=== PATIENT | female | born 1955 | race Caucasian/White ===

== ENCOUNTER 2021-11-24 18:53 | Outpatient (REF) | payer MEDICARE, MEDICAID, SELFPAY | END 2021-11-24 18:54 | disposition home or self-care (01) | LOC: HO.MRI 18:53 | PROVIDERS: Visit Provider Psychiatry & Neurology Neurology | DX: Z13.89 Encounter for screening for other disorder (principal) ==

== ENCOUNTER → 2022-01-01 14:09 | Outpatient (BNVA) | payer MEDICARE, MEDICAID, SELFPAY | PROVIDERS: Visit Provider Internal Medicine | DX: M54.16 Radiculopathy, lumbar region (principal) | CPT/HCPCS: 99202 ==

== ENCOUNTER 2022-01-03 06:18 | Outpatient (REF) | payer MEDICARE, MEDICAID, SELFPAY ==
--- NOTE | ~2022-01-03 | FL_ITS ---
EXAMINATION: XR FLUOROSCOPY WITH IMAGES CLINICAL INFORMATION: M54.16 - Radiculopathy, lumbar region COMPARISON: MR lumbar spine 11/29/2021 ([facility]). TECHNIQUE: Fluoroscopy performed by Dr. Jono Vargas. Fluoroscopy time: 23 seconds Cumulative dose: 16.39 mGy Images: 2 FINDINGS: There is a spinal needle entering the lower sacral hiatus on both views. FL/FL guidance in treatment room IMPRESSION: Fluoroscopy for pain management procedure.
== END 2022-01-03 06:19 | disposition home or self-care (01) ==
LOC: HO.RADIR 06:18
PROVIDERS: Visit Provider Internal Medicine
DX: M54.16 Radiculopathy, lumbar region (principal)
CPT/HCPCS: 62323; J1040; Q9967

== ENCOUNTER → 2022-02-05 14:08 | Outpatient (BNVA) | payer MEDICARE, MEDICAID, SELFPAY | PROVIDERS: Visit Provider Internal Medicine | DX: M54.16 Radiculopathy, lumbar region (principal) | CPT/HCPCS: 99212 ==

== ENCOUNTER 2022-03-28 05:56 | Outpatient (REF) | payer MEDICARE, MEDICAID, SELFPAY ==
--- NOTE | ~2022-03-28 | FL_ITS ---
EXAMINATION: XR FLUOROSCOPY WITH IMAGES CLINICAL INFORMATION: Fluoroscopic guidance. COMPARISON: None. TECHNIQUE: Fluoroscopy time: 0.5 minutes. Cumulative Dose: 14.6 mGy. DAP: 2.07 Gy-cm2. Images: 2. FL/FL guidance in treatment room FINDINGS: / IMPRESSION: Procedure fluoroscopy provided. Please refer to operative note for procedure and image findings
== END 2022-03-28 05:57 | disposition home or self-care (01) ==
LOC: HO.RADIR 05:56
PROVIDERS: Visit Provider Internal Medicine
DX: M54.16 Radiculopathy, lumbar region (principal)
CPT/HCPCS: 62323; J1040

== ENCOUNTER → 2022-04-27 10:25 | Outpatient (BNVA) | payer MEDICARE, MEDICAID, SELFPAY | PROVIDERS: Visit Provider Internal Medicine | DX: M54.16 Radiculopathy, lumbar region (principal); M79.7 Fibromyalgia; E03.9 Hypothyroidism, unspecified | CPT/HCPCS: 99212 ==

== ENCOUNTER → 2022-11-02 08:52 | Outpatient (BNVA) | payer MEDICARE, MEDICAID, SELFPAY | PROVIDERS: Visit Provider Internal Medicine | DX: M54.16 Radiculopathy, lumbar region (principal) | CPT/HCPCS: 99212 ==

== ENCOUNTER → 2022-11-27 15:23 | Outpatient (BNVA) | payer MEDICARE, MEDICAID, SELFPAY | PROVIDERS: PCP Psychiatry & Neurology Neurology; Visit Provider Neurological Surgery | DX: M54.16 Radiculopathy, lumbar region (principal) | CPT/HCPCS: 99202 ==

== ENCOUNTER 2022-12-06 07:42 | Day surgery (SDC) | payer MEDICARE, MEDICAID, SELFPAY ==
[2022-12-04 10:51] VITALS: BMI 37.4
--- NOTE | 2022-12-05 14:18 | HO.ANESPROP2 ---
Documented by User: Ashlyn Lopez NP 12/05/22 14:19 HPI - Anesthesia Eval Consult details Narrative: 67yo F for ?L5 Laminectomy Lumbar Decompression Medically optimized with labs and EKG at outside facility Reports ? high spinal 20 years ago [facility] Active Problems Active Problems: All Active Problems (Updated 12/04/22 @ 10:56 by Nevaeh Bowen, RN) Lumbar back pain with radiculopathy affecting right lower extremity (Acute) Past Medical History Medical History (Updated 12/04/22 @ 10:56 by Nevaeh Bowen, RN) Anesthesia complication Arthritis Dental crowns present Depression with anxiety Fibromyalgia Hypothyroidism Low back pain Migraine Surgical History Surgical History (Updated 12/04/22 @ 10:51 by Nevaeh Bowen RN) History of bilateral knee replacement History of section Hx of bilateral cataract extraction Hx of cholecystectomy Hx of colonoscopy Hx of non-cataract eye surgery Social History Social History Household Members Other:: son 30 yrs old Are you a primary healthcare consultant to a significant other at home: No Do you presently have visiting nurse or other home services: No Patient Tobacco Use Status: Former Tobacco user Quit Date: Tobacco use type: Cigarette Use of substances other than those prescribed or required for medical reasons: No Have you been hit, kicked, punched, or otherwise hurt by someone within the past year? If so, by whom?: No Are you DNR?: No Advance Directives: No Advance Directives Information Provided: Yes Advance Directives on File: No Recently lost weight without trying: No Nutrition Risks: No Nutritional Risk Meds Allergies Allergy/AdvReac Type Severity Reaction Status Date / Time Penicillins Allergy Intermediate Hives Verified 12/04/22 10:49 gabapentin AdvReac Intermediate Diarrhea Verified 12/04/22 10:49 Home Medications Medication Instructions Recorded Confirmed Last Taken Type clonazepam 0.5 mg disintegrating 0.5 mg PO BID 01/01/22 12/04/22 12/06/22 History tablet levothyroxine 75 mcg tablet 75 mcg PO DAILY 01/01/22 12/04/22 Unknown History omeprazole 20 mg capsule,delayed 20 mg PO DAILY 01/01/22 12/04/22 Unknown History release pravastatin 20 mg tablet 20 mg PO BEDTIME 01/01/22 12/04/22 Unknown History bupropion HCl 150 mg 24 hr tablet, 150 mg PO DAILY 02/05/22 12/04/22 Unknown History extended release metformin 500 mg tablet 500 mg PO DAILY 11/27/22 12/04/22 Unknown History naproxen 500 mg tablet 500 mg PO BID 11/27/22 12/04/22 12/01/22 08:00 History Exam Exam Date and Time: December 05, 2022 1418 Height,Weight and Vital Signs: Height 5 ft 4 in Weight 98.883 kg Assessment and Plan Assessment Anesthesia Assessment: Chart Reviewed Documented by User: Jono Vargas MD 12/06/22 09:57 PMFSH Past Medical History Medical History (Updated 12/04/22 @ 10:56 by Nevaeh Bowen RN) Anesthesia complication Arthritis Dental crowns present Depression with anxiety Fibromyalgia Hypothyroidism Low back pain Migraine Family History Family history of problems with anesthesia: No Surgical History Surgical History (Updated 12/04/22 @ 10:51 by Nevaeh Bowen RN) History of bilateral knee replacement History of section Hx of bilateral cataract extraction Hx of cholecystectomy Hx of colonoscopy Hx of non-cataract eye surgery History of Problems with Anesthesia: No Social History Social History Household Members Other:: son 30 yrs old Are you a primary healthcare consultant to a significant other at home: No Do you presently have visiting nurse or other home services: No Patient Tobacco Use Status: Former Tobacco user Quit Date: Tobacco use type: Cigarette Use of substances other than those prescribed or required for medical reasons: No Have you been hit, kicked, punched, or otherwise hurt by someone within the past year? If so, by whom?: No Are you DNR?: No Advance Directives: No Advance Directives Information Provided: Yes Advance Directives on File: No Recently lost weight without trying: No Nutrition Risks: No Nutritional Risk Meds Allergies Allergy/AdvReac Type Severity Reaction Status Date / Time Penicillins Allergy Intermediate Hives Verified 12/04/22 10:49 gabapentin AdvReac Intermediate Diarrhea Verified 12/04/22 10:49 Home Medications Medication Instructions Recorded Confirmed Last Taken Type clonazepam 0.5 mg disintegrating 0.5 mg PO BID 01/01/22 12/04/22 12/06/22 History tablet levothyroxine 75 mcg tablet 75 mcg PO DAILY 01/01/22 12/04/22 Unknown History omeprazole 20 mg capsule,delayed 20 mg PO DAILY 01/01/22 12/04/22 Unknown History release pravastatin 20 mg tablet 20 mg PO BEDTIME 01/01/22 12/04/22 Unknown History bupropion HCl 150 mg 24 hr tablet, 150 mg PO DAILY 02/05/22 12/04/22 Unknown History extended release metformin 500 mg tablet 500 mg PO DAILY 11/27/22 12/04/22 Unknown History naproxen 500 mg tablet 500 mg PO BID 11/27/22 12/04/22 12/01/22 08:00 History Exam Airway Mallampati Class: II TM Dist: >3cm Neck ROM: Full Loose/Missing/Broken Teeth: No Assessment and Plan Assessment Anesthesia Assessment: Anesthesia Plan Discussed Final Anesthetic Review Family History of Problems with Anesthesia: No History of Problems with Anesthesia: No NPO: Yes ASA Class: III Final Preanesthetic Review: No Changes in Pt Med Stat, Meds/Allgs Chart Reviewed, Consent Obtained/Reviewed and Anes Risks/Benef Reviewed Patient Risk: Intermediate Procedure Risk: Low Anesthetic Plan Anesthetic Plan: GA Disposition: Standard PACU
[2022-12-06] VITALS (17 sets, daily range): BP systolic 106–136; BP diastolic 55–75; PULSE 73–97; RESP 12–21; TEMP 36.1–36.5; O2SAT 94–99
--- NOTE | ~2022-12-06 | FL_ITS ---
EXAMINATION: XR FLUOROSCOPY WITH IMAGES CLINICAL INFORMATION: Low back pain. COMPARISON: None available. TECHNIQUE: Fluoroscopy Supervised By: Dr. Moon. Fluoroscopy Time: Less than 0.1 minutes. Cumulative Dose: 2.73 mGy. DAP: 0.746 Gycm2. Images: 1. FINDINGS: There is a single posterior probe with its tip at the L5-S1 disc level. Mild degenerative disc changes L3-L4, L4-L5 disc levels with mild ventral spondylosis. No aggressive lytic or sclerotic process seen. FL/FL guidance in OR IMPRESSION: Fluoroscopy guidance was provided to referring physician prior to lumbar surgery. Degenerative disc changes L3-L4 and L4-L5 disc levels.
[2022-12-06 08:23] LABS: Glucose, Whole Blood 117 mg/dL (60-115)
[2022-12-06] MEDS: methocarbamoL 750 MG TABLET PO ×2 (08:47)
[2022-12-06] MEDS: vancomycin HCL 1,500 MG in 0.9 % Sodium Chloride 500 ML 333.33 MG IV (08:47)
--- NOTE | 2022-12-06 11:30 | P.OP_ITS ---
Operative Note Operative Note Date of Service: 12/06/22 Narrative: Preoperative Diagnosis: right L5 radiculopathy Operation: right L5 Laminotomy, Partial facetectomy and foraminotomy with use of microscope Consent Informed Consent was obtained for this operation. I have explained the nature, purpose and benefits of the operation. I have discussed the risks and benefit of the operation including possible complications or adverse events with patient/family. Alternative(s) were discussed with the patient with their relative benefits and risks as well as the consequences of not accepting the operation were included in obtaining consent. Surgeon: RONALDO KELLER MD, PHD Procedure Assisted By: Alfredo Gorman Description of Procedure 67 year female suffered from a persistent right lumbar radiculopathy due to a right L5 foraminal stenosis. The patient was offered a decompression. The procedure complications were explained. The patient was consented. The patient was brought to the operating room and endotracheally intubated. The patient was turned in prone position on the Levon frame. Prep and drape was done followed by timeout. Physician legal document assistant provided access. A mid lumbar incision was made followed by release of the paravertebral muscle on the right side to expose the L5 lamina and facet joint. An intraoperative x-ray was obtained to confirm the correct level. The microscope was brought in. I took over the procedure. The high-speed drill was used to do a L5 laminotomy. #2 Kerrison was used to further remove the lamina towards the L5 foramen. With a nerve hook the medial wall of the pedicle L5 pedicle was palpated as well as the beginning of the L5 foramen. The facet joint was partially drilled down after which with a #2 Kerrison a foraminotomy was done. Finally a foraminotomy Kerrison was used to complete the foraminotomy. A long the nerve root could be easily passed a side of adequate decompression. The microscope was removed. Hemostasis was done. Incision was closed in 2 layers. Steri-Strips were used to approximate incision. An OpSite with Tegaderm was used to cover the incision. All sponge needle counts were correct. Patient was extubated and transported in stable is to recovery room. Anesthesia: General Estimated Blood Loss (ml): Minimal Duration of Surgery: Under 60 Minutes Postoperative Plan: Discharge to home
--- NOTE | 2022-12-06 11:30 | PM.DS ---
DS: Providers Provider Date of Service: 12/06/22 Date of discharge: 12/06/22 Primary care physician: Irish Alfonso NP Admitting clinician: Ayad Hendrickson DS: Diagnosis Discharge Diagnosis (1) Lumbar back pain with radiculopathy affecting right lower extremity: Status: Acute DS: Summary Time Spent with Patient Time attestation: Total time managing care of this patient today ____ minutes. Discharge coordination time: Less than 30 minutes Quality: Safe Use of Opioids Does Pt have an Active Cancer Diagnosis on the Problem List?: No Quality: Stroke Does the patient have a stroke diagnosis?: No Physical Exam Vital Signs: Vital Signs: Last Vital Signs Temp 97.7 F 12/06/22 08:23 Pulse 97 12/06/22 08:23 Resp 16 12/06/22 08:23 BP 136/73 12/06/22 08:23 O2 Del Method Room Air 12/06/22 08:23 BMI result Body Mass Index 37.4 DS: Data Data Completed and Pending Labs on day of discharge: Laboratory Results - last 24 hr 12/06/22 08:19 POC Glucose 117 H Discharge Plan Discharge Patient Disposition: Home, Self-Care Referrals: Irish rConin NP [Primary Care Provider] - 1 Week Discharge Medications: New docusate sodium [Colace] 100 mg capsule 100 mg PO BID Qty: 20 0RF hydromorphone [Dilaudid] 2 mg tablet 2 mg PO Q6H PRN (Reason: pain) Qty: 30 0RF Rx Instructions: Partial Fill upon patient request. Continued pravastatin 20 mg tablet 20 mg PO BEDTIME clonazepam 0.5 mg tablet,disintegrating 0.5 mg PO BID omeprazole 20 mg capsule,delayed release(DR/EC) 20 mg PO DAILY levothyroxine 75 mcg tablet 75 mcg PO DAILY bupropion HCl 150 mg tablet extended release 24 hr 150 mg PO DAILY naproxen 500 mg tablet 500 mg PO BID metformin 500 mg tablet 500 mg PO DAILY Discharge Orders: Discharge Order (Routine); Ordered 12/06/22 Ordered By: Alfredo Wang Diet: Advance to usual diet Activity on Discharge: As tolerated Activity Restrictions/Additional Instructions: After your spinal surgery we ask you to observe the following restrictions/guidelines: Activity: It is normal to feel some discomfort as you increase your activity, but that will improve with time. We ask you avoid heavy lifting or acitivities that cause pain. As a general rule, 8lbs is a safe limit for lifting right after surgery. Walk as much as you feel comfortable but not to exhaustion. You will feel extra tired the first few days after surgery. Stay well hydrated. It is OK to walk up and down stairs You may return to driving when you are off narcotics (such as vicodin, oxycodone, dilaudid, etc), and you are back to normal functional capacity. If you have any concerns please check with office before driving. Return to work is specific to each patient and each surgery, so please speak with your doctor/PA at first follow up. Please bring paperwork such as FMLA at that time if you need it filled out. Medications: We will give you a short supply of narcotics after surgery (usually one weeks worth). If you need more please call the office but do not use more than prescribed. You will need to give our office 48 hours notice if you need narcotics refilled and we do not fill narcotics on weekends or evenings. If you are on a narcotic, it is a good idea to take a stool softener such as colace or senna to avoid constipation If you take blood thinner such as aspirin, Plavix, Coumadin, Effient, Eliquis etc for conditions such as Afib, DVT, Pulmonary embolus, coronary disease, stents etc please speak with your surgeon about specific details as to when you can resume these medications. You can resume NSAIDs on post op day 1 (eg: Motrin, Naproxen, etc). Follow up: Please call the office, , after surgery to arrange a 3 week follow up for wound check. Wound Care: You may remove your dressing on the first day after surgery. You may leave open to air. Please do not remove the steri strips underneath. they will fall off on their own in one week. IT IS NORMAL FOR THE WOUND TO OOZE OR BE BLOODY FOR A FEW DAYS AFTER SURGERY. IF THIS HAPPENS JUST PLACE NEW DRESSING OVER IT TO AVOID STAINING CLOTHES. You may shower on post op day # 1 We ask that you do not let the water soak the wound. If it does get wet, just towel dry lightly. Please do not scrub your incision or place any type of chemical/ointment on the wound. No tub baths, pools or jacuzzis for one month. If you have any leaking or redness from your wound, or fevers, please call office
== END 2022-12-06 15:55 | disposition home or self-care (01) ==
PROVIDERS: PCP Nurse Practitioner Gerontology; Visit Provider Neurological Surgery
PROC: (CPT 63047; principal; 2022-12-06 09:40)
DX: M54.16 Radiculopathy, lumbar region (principal); M48.062 Spinal stenosis, lumbar region with neurogenic claudication; M41.56 Other secondary scoliosis, lumbar region; E11.9 Type 2 diabetes mellitus without complications; E03.9 Hypothyroidism, unspecified; F41.1 Generalized anxiety disorder; Z79.1 Long term (current) use of non-steroidal anti-inflammatories (NSAID); Z79.84 Long term (current) use of oral hypoglycemic drugs; Z79.899 Other long term (current) drug therapy; Z88.0 Allergy status to penicillin; Z88.8 Allergy status to other drugs, medicaments and biological substances; Z87.891 Personal history of nicotine dependence
CPT/HCPCS: 63047; 82947; J0131; J1100; J1170; J1885; J2250; J2405; J3010; J3371

== ENCOUNTER → 2022-12-28 14:37 | Outpatient (BNVA) | payer MEDICARE, MEDICAID, SELFPAY | PROVIDERS: PCP Nurse Practitioner Gerontology; Visit Provider Physician Assistant | DX: Z47.89 Encounter for other orthopedic aftercare (principal); M54.16 Radiculopathy, lumbar region | CPT/HCPCS: 99212 ==

== ENCOUNTER 2025-03-02 14:22 | Outpatient (AMB) | payer MEDICARE, MEDICAID, SELFPAY ==
--- OUTSIDE RECORDS SUMMARY | 2025-02-24 23:59 | XMS_ITS | Continuity of Care Document ---
Author Organization [facility] ter Address [address] [place] [address]- Care Team Providers Care Phototypesetting Equipment Monitor Name Role Phone Daniella COMMUNITY RELATIONS MANAGER, Cleo Mueller Primary Care Physician [phone] Encounter [facility] ACCT R [id number] Date(s): 10/27/24 - 02/24/[address] [address] Attending Physician: Swetha John MD Admitting Physician: Swetha John MD Encounter Type: Pre-Outpt Allergies, Adverse Reactions, Alerts Substance Criticality Severity Reaction Reaction Severity Status penicillin rash Active morphine morphine allergy-respiratory arrest, per pt. morphine allergy-respiratory depression in anesthesis per pt. Morphine allergy Active gabapentin severe diarrhea Act tamika Percocet vomit Active oxyCODONE Low criticality Mild Acti ve Immunizations Given and Recorded Vaccine Date Status Refusal Reason zoster vaccine, inactivated 09/20/23 Recorded zoster vaccine, inactivated 03/28/23 Recorded SARS-CoV-2 (COVID-19) mRNA-1273 vaccine 04/05/21 R ecorded SARS-CoV-2 (COVID-19) mRNA-1273 vaccine 11/21/20 R ecorded Medications Aspirin Low Dose 81 mg oral delayed release tablet 1 tablet, By Mouth, Daily, # 90 tablet, 0 Refills, Maintenance, 02/16/25 2:01:00 PM EDT, [id number], 163, cm, 01/20/25 14:07:00 EDT, Height, 95.5, kg, 01/05/25 14:20:00 EDT, Dry Weight Start Date: 02/16/25 Status: Ordered Quantity: 90.0 Unit: tablet Repeat number: 1 betamethasone topical dipropionate 0.05% lotion See Instructions, APPLY TOPICALLY TWICE A DAY FOR 2 WEEKS THEN ONLY NEEDED, # 60 mL, 0 Refills, Maintenance, 07/13/24 9:16:00 AM EST, [facility] [id number], 30, APPLY TOPICALLY TWICE A DAY FOR 2 WEEKS THEN ONLY NEEDED, 163, cm, 06/08/24 14:45:00 EST, Height, 100, kg, 02/25/24 11:50:00 EDT, Dry Weight Start Date: 07/13/24 Status: Ordered Quantity: 60.0 Unit: mL Repeat number: 1 buPROPion 150 mg/24 hours (XL) oral tablet, extended release 1 tablet, By Mouth, 2 times a day, # 180 tablet, 0 Refills, Maintenance, 11/16/24 9:27:00 AM EDT, [facility]/pharmacy #[id number], 1 tablet By Mouth 2 times a day, 163, cm, 10/21/24 13:26:00 EDT, Height, 97.8, kg,10/12/24 1:39:00 EDT, Dry Weight Start Date: 11/16/24 Status: Ordered Quantity: 180.0 Unit: tablet Repeat number: 1 cetirizine 10 mg oral tablet 1 tablet, By Mouth, Daily, # 90 tablet, 1 Refills, Maintenance, 02/16/25 1:04:00 PM EDT, [facility] [id number], 163, cm, 01/20/25 14:07:00 EDT, Height, 95.5, kg, 01/05/25 14:20:00 EDT, Dry Weight Start Date: 02/16/25 Status: Ordered Quantity: 90.0 Unit: tablet Repeat number: 1 clonazePAM 0.5 mg oral tablet See Instructions, TAKE 1 TABLET BY MOUTH TWICE DAILY, # 60 tablet, 0 Refills, Soft Stop, 02/15/25 9:21:00 AM EDT, [facility]/pharmacy #[id number], 163, cm, 01/20/25 14:07:00 EDT, Height, 95.5, kg, 01/05/25 14:20:00 EDT, Dry Weight Start Date: 02/15/25 Status: Ordered Quantity: 60.0 Unit: tablet Repeat number: 1 cyclobenzaprine 5 mg oral tablet 0 Refills, Maintenance, 06/08/24 2:46:00 PM EST, Partial fill upon patient request if the prescription is for a schedule II opioid drug. Start Date: 06/08/24 Status: Ordered Repeat number: 1 docusate sodium 100 mg oral capsule 100 mg, 1, capsule, By Mouth, Daily, PRN, # 30 capsule, Refills 3, Tot. Refills 3, Maintenance, forconstipation, 09/30/24 3:02:00 PM EDT, Route to Pharmacy Electronically, [facility]/pharmacy #[id number], Partialfill upon patient request if the prescription is for a schedule II opioid drug., 163, cm, 09/30/24 15:00:00 EDT, Height, 100, kg, 02/25/24 11:50:00 EDT, Dry Weight Start Date: 09/30/24 Status: Ordered Quantity: 30.0 Unit: capsule Repeat number: 4 Freestyle Lancets See Instructions, # 50 each, Refills 5, Tot. Refills 5, Maintenance, use as directed qd for Type 2 Diabetes Mellitus, 12/30/23 1:16:00 PM EDT, Supply, 162.56, cm, 12/30/23 12:55:00 EDT, Height, 101.3,kg, 10/25/23 21:04:00 EDT, Dry Weight Start Date: 12/30/23 Stop Date: 06/27/24 Status: Ordered Quantity: 50.0 Unit: each Repeat number: 6 Indications: Type 2 diabetes mellitus without complications; Freestyle Lancets See Instructions, # 100 each, Refills 3, Tot. Refills 3, Maintenance, test qd dx E11.9, 10/03/24 7:29:00 AM EDT, Supply, 163, cm, 09/30/24 15:00:00 EDT, Height, 100, kg, 02/25/24 11:50:00 EDT, Dry Weight Start Date: 10/03/24 Status: Ordered Quantity: 100.0 Unit: each Repeat number: 4 Freestyle [place] 3 Plus Sensor Freestyle [place] 3 Plus Sensor, See Instructions, # 6 each, Refills 3, Tot. Refills 3, Maintenance, Use as directed for Diabetes Control. Change every 15 days E11.9, 11/22/24 9:34:00 AM EDT, Supply, 163, cm, 11/19/24 15:00:00 EDT, Height, 97.8, kg, 10/12/24 1:39:00 EDT, Dry Weight Start Date: 11/22/24 Status: Ordered Quantity: 6.0 Unit: each Repeat number: 4 Freestyle Lite Monitor See Instructions, # 1 each, Refills 0, Tot. Refills 0, Maintenance, use as directed for Type 2 Diabetes Mellitus, 12/30/23 1:16:00 PM EDT, Supply, 162.56, cm, 12/30/23 12:55:00 EDT, Height, 101.3, kg,10/25/23 21:04:00 EDT, Dry Weight Start Date: 12/30/23 Stop Date: 01/29/24 Status: Ordered Quantity: 1.0 Unit: each Repeat number: 1 Indications: Type 2 diabetes mellitus without complications; Freestyle Lite Test Strips See Instructions, # 50 each, Refills 5, Tot. Refills 5, Maintenance, Patient to test 1 a day for Type 2 Diabetes Mellitus E11.9, 10/05/24 11:08:00 AM EDT, Supply, 163, cm, 09/30/24 15:00:00 EDT, Height, 100, kg, 02/25/24 11:50:00 EDT, Dry Weight Start Date: 10/05/24 Stop Date: 04/03/25 Status: Ordered Quantity: 50.0 Unit: each Repeat number: 6 Indications: Type 2 diabetes mellitus without complications; Freestyle Test Strips See Instructions, # 50 each, Refills 5, Tot. Refills 5, Maintenance, test qd dx e11.9, 10/03/24 7:29:00 AM EDT, Supply, 163, cm, 09/30/24 15:00:00 EDT, Height, 100, kg, 02/25/24 11:50:00 EDT, Dry Weight Start Date: 10/03/24 Status: Ordered Quantity: 50.0 Unit: each Repeat number: 6 glimepiride 2 mg oral tablet 1 tablet, By Mouth, Daily, # 90 tablet, 3 Refills, Maintenance, 10/21/24 5:22:00 PM EDT, [facility]/pharmacy #[id number], 163, cm, 10/21/24 13:26:00 EDT, Height, 97.8, kg, 10/12/24 1:39:00 EDT, Dry Weight Start Date: 10/21/24 Status: Ordered Quantity: 90.0 Unit: tablet Repeat number: 4 Lantus Solostar Pen 100 units/mL subcutaneous solution = 12 units, Subcutaneous Injection, Daily at bedtime, rotate injection sites E11.9, # 15 mL, 3 Refills, Maintenance, 10/21/24 5:21:00 PM EDT, Solution, [facility]/pharmacy #[id number], Partial fill upon patient request if the prescription is for a schedule II opioid drug., 163, cm, 10/21/24 13:26:00 EDT, Height,97.8, kg, 10/12/24 1:39:00 EDT, Dry Weight Start Date: 10/21/24 Status: Ordered Quantity: 15.0 Unit: mL Repeat number: 4 Indications: Type 2 diabetes mellitus without complications; levothyroxine 75 mcg (0.075 mg) oral tablet 1 tablet, By Mouth, Daily, # 90 tablet, 1 Refills, Maintenance, 10/15/24 11:39:00 AM EDT, [facility]/pharmacy #[id number], 163, cm, 10/12/24 10:20:00 EDT, Height, 97.8, kg, 10/12/24 1:39:00 EDT, Dry Weight Start Date: 10/15/24 Status: Ordered Quantity: 90.0 Unit: tablet Repeat number: 2 meclizine 12.5 mg oral tablet 1 tablet = 12.5 mg, By Mouth, 3 times a day, PRN for dizziness, # 30 tablet, 0 Refills, Maintenance, 10/12/24 12:25:00 PM EDT, Tablet, [facility], Partial fill upon patient request if theprescription is for a schedule II opioid drug., 163, cm, 10/12/24 10:20:00 EDT, Height, 97.8, kg, 10/12/24 1:39:00 EDT, Dry Weight Start Date: 10/12/24 Status: Ordered Quantity: 30.0 Unit: tablet Repeat number: 1 Naprosyn 375 mg oral tablet 1, tablet, By Mouth, 2 times a day, # 180 tablet, Refills 0, Maintenance, 08/19/22 7:31:00 AM EST, Partial fill upon patient request if the prescription is for a schedule II opioid drug. Start Date: 08/19/22 Status: Ordered Quantity: 180.0 Unit: tablet Repeat number: 1 omeprazole 20 mg oral enteric coated capsule 1 capsule, By Mouth, Daily, # 90 capsule, 1 Refills, Maintenance, 02/10/25 6:27:00 AM EDT, [facility], 163, cm, 01/20/25 14:07:00 EDT, Height, 95.5, kg, 01/05/25 14:20:00 EDT, Dry Weight Start Date: 02/10/25 Status: Ordered Quantity: 90.0 Unit: capsule Repeat number: 2 ondansetron 4 mg oral tablet 1 tablet, By Mouth, Every 8 hours, PRN NEEDED FOR NAUSEA AND VOMITING, # 10 tablet, 1 Refills, Maintenance, 09/30/24 3:01:00 PM EDT, [facility]/pharmacy #[id number], 163, cm, 09/30/24 15:00:00 EDT, Height, 100,kg, 02/25/24 11:50:00 EDT, Dry Weight Start Date: 09/30/24 Status: Ordered Quantity: 10.0 Unit: tablet Repeat number: 2 Pen [place], 31 G x 5 mm BD Ultra Fine III See Instructions, # 100 each, Refills 3, Tot. Refills 3, Maintenance, Use 1 time per day for insulin injection. E11.9 90 day supply, 10/21/24 5:22:00 PM EDT, 100 quantity for 3 months supplies, or less quantity as per insurance requirement. can switch to other brand as per patient request., Supply, 163, cm, 10/21/24 13:26:00 EDT, Height, 97.8, kg, 10/12/24 1:39:00 EDT, Dry Weight Start Date: 10/21/24 Stop Date: 10/16/25 Status: Ordered Quantity: 100.0 Unit: each Repeat number: 4 PT eval and treat for vestibular rehab PT eval and treat for vestibular rehab, See Instructions, # 1 each, Refills 0, Tot. Refills 0, Maintenance, PT eval and treat for vestibular rehab, 10/12/24 12:26:00 PM EDT, Compound Start Date: 10/12/24 Status: Ordered Quantity: 1.0 Unit: each Repeat number: 1 rosuvastatin 40 mg oral tablet 1 tablet, By Mouth, Daily at bedtime, # 90 tablet, 1 Refills, Maintenance, 02/17/25 12:27:00 PM EDT,[facility]/pharmacy #[id number], 163, cm, 01/20/25 14:07:00 EDT, Height, 95.5, kg, 01/05/25 14:20:00 EDT, Dry Weight Start Date: 02/17/25 Status: Ordered Quantity: 90.0 Unit: tablet Repeat number: 2 Trulicity Pen 0.75 mg/0.5 mL subcutaneous solution = 0.75 mg, Subcutaneous Injection, Every week, rotate injection sites, # 2 mL, 6 Refills, Maintenance, 01/20/25 3:42:00 PM EDT, Solution, [facility]/pharmacy #[id number], Partial fill upon patient request if the prescription is for a schedule II opioid drug., 163, cm, 01/20/25 14:07:00 EDT, Height, 95.5, kg, 01/05/25 14:20:00 EDT, Dry Weight Start Date: 01/20/25 Status: Ordered Quantity: 2.0 Unit: mL Repeat number: 7 Tylenol 325 mg oral tablet 650 mg, 2, tablet, By Mouth, 2 times a day, PRN Pain , Moderate, 0 Refills Start Date: 07/11/05 Status: Ordered Repeat number: 1 Walker with wheels Walker with wheels, See Instructions, # 1 each, Refills 0, Tot. Refills 0, Maintenance, Walker withwheels, 10/12/24 12:26:00 PM EDT, Compound Start Date: 10/12/24 Status: Ordered Quantity: 1.0 Unit: each Repeat number: 1 Problem List Condition Confirmation Course Effective Dates Status H ealth Status Informant Generalized osteoarthritis of multiple sites Confirmed Active Fatigue Confirmed Active Foot neuralgia Confirmed Active Gastro-esophageal reflux Confirmed Active Generalized anxiety disorder Confirmed Active H/O carotid stenosis Confirmed Active History of fibromyalgia Confirmed Active History of surgery 1 Confirmed Active Use of opiates for therapeutic purposes Confirmed Active History of carotid endarterectomy Confirmed Active Hyperlipidemia Confirmed Active Hypothyroidism Confirmed Active Knee joint pain Confirmed Active Low back pain Confirmed Active Facet syndrome, lumbar Confirmed Active Lumbar spondylosis Confirmed Active Depression with anxiety Confirmed Active Pulmonary nodule Confirmed Active Left shoulder pain Confirmed Active Severe obesity (BMI 35.0-39.9) with comorbidity Confirmed Active Lumbar stenosis Confirmed Active Fatty liver Confirmed Active Diabetes mellitus, type II Confirmed Active 1History of left-sided vitrectomy, cataract procedure, section, cholecystectomy, knee procedure Social History Social History Type Response Smoking Status Never (less than 100 in lifetime) entered on: 10/21/24 Sex Sex Representation Female (finding) Patient Care team information Care Team Personnel Name: Kayla Arzate LPN Position: S RN Member Role: Primary Care Nurse Name: Joellen Nava RN Position: [facility] SN RN Member Role: Primary Care Nurse Name: Cleo Brewer NP Position: [facility] PCO Associate Professional Member Role: PCP Address: [address] [place] [address] Telecom: Name: Sen Rosales RN Position: [facility] RN Member Role: Primary Care Nurse Care Team Related Persons Name: MARIAA MONSIVAIS Name: SEN ALEJANDRA Name: SHRAVAN ALEJANDRA Name: THOMAS ALEJANDRA Insurance Providers Guarantor name: SAY ALEJANDRA Health Plan Information #: 1 Payer: [employer] Payer Identifier: Member Number: [id number] Group Number: [id number] Subscriber Identifier: [id number] Relationship to Subscriber: self Coverage Type: Managed Care (Private) Coverage Verification Date: NA Telecom: NA Address: Health Plan Information #: 2 Payer: [employer] Payer Identifier: NA Member Number: [id number] Group Number: Subscriber Identifier: [id number] Relationship to Subscriber: self Coverage Type: MEDICAID Coverage Verification Date: NA Telecom: Address:
--- OUTSIDE RECORDS SUMMARY | 2025-02-24 23:59 | XMS_ITS | Continuity of Care Document ---
Author Organization [facility] ter Address [address] [place] [address]- Care Team Providers Care Program Director Air Talent Name Role Phone Chew FIBERGLASS GRINDER, Cleo Mueller Primary Care Physician [phone] Encounter [facility] Date(s): 01/25/25 - 02/24/[address] [address] Attending Physician: Boris Lopez Admitting Physician: Boris Lopez Referring Physician: Admtr ArAncelmo Encounter Type: Triage Allergies, Adverse Reactions, Alerts Substance Criticality Severity Reaction Reaction Severity Status penicillin rash Active morphine morphine allergy-respiratory arrest, per pt. morphine allergy-respiratory depression in anesthesis per pt. Morphine allergy Active oxyCODONE Low criticality Mild Acti ve gabapentin severe diarrhea Act tamika Percocet vomit Active Immunizations Given and Recorded Vaccine Date Status Refusal Reason zoster vaccine, inactivated 09/20/23 Recorded zoster vaccine, inactivated 03/28/23 Recorded SARS-CoV-2 (COVID-19) mRNA-1273 vaccine 04/05/21 R ecorded SARS-CoV-2 (COVID-19) mRNA-1273 vaccine 11/21/20 R ecorded Medications Aspirin Low Dose 81 mg oral delayed release tablet 1 tablet, By Mouth, Daily, # 90 tablet, 0 Refills, Maintenance, 02/16/25 2:01:00 PM EDT, [facility], 163, cm, 01/20/25 14:07:00 EDT, Height, 95.5, kg, 01/05/25 14:20:00 EDT, Dry Weight Start Date: 02/16/25 Status: Ordered Quantity: 90.0 Unit: tablet Repeat number: 1 betamethasone topical dipropionate 0.05% lotion See Instructions, APPLY TOPICALLY TWICE A DAY FOR 2 WEEKS THEN ONLY NEEDED, # 60 mL, 0 Refills, Maintenance, 07/13/24 9:16:00 AM EST, [facility] 10[facility], 30, APPLY TOPICALLY TWICE A DAY FOR [...] 0 Refills, Maintenance, 11/16/24 9:27:00 AM EDT, [facility]/pharmacy #[id number], 1 tablet By Mouth 2 times a day, 163, cm, 10/21/24 13:26:00 EDT, Height, 97.8, kg,10/12/24 1:39:00 EDT, Dry Weight Start Date: 11/16/24 Status: Ordered Quantity: 180.0 Unit: tablet Repeat number: 1 cetirizine 10 mg oral tablet 1 tablet, By Mouth, Daily, # 90 tablet, 1 Refills, Maintenance, 02/16/25 1:04:00 PM EDT, [facility] ST[facility] 79555, 163, cm, 01/20/25 14:07:00 EDT, Height, 95.5, kg, 01/05/25 14:20:00 EDT, Dry Weight Start Date: 02/16/25 Status: Ordered Quantity: 90.0 Unit: tablet Repeat number: 1 clonazePAM 0.5 mg oral tablet See Instructions, TAKE 1 TABLET BY MOUTH TWICE DAILY, # 60 tablet, 0 Refills, Soft Stop, 02/15/25 9:21:00 AM EDT, [facility]/pharmacy #0859, 163, cm, 01/20/25 14:07:00 EDT, Height, [...] 3:02:00 PM EDT, Route to Pharmacy Electronically, [facility]/pharmacy #[id number], Partialfill upon patient request if the prescription [...] 3 Refills, Maintenance, 10/21/24 5:22:00 PM EDT, [facility]/pharmacy #0859, 163, cm, 10/21/24 13:26:00 EDT, Height, 97.8, kg, 10/12/24 1:39:00 EDT, Dry Weight Start Date: 10/21/24 Status: Ordered Quantity: 90.0 Unit: tablet Repeat number: 4 Lantus Solostar Pen 100 units/mL subcutaneous solution = 12 units, Subcutaneous Injection, Daily at bedtime, rotate injection sites E11.9, # 15 mL, 3 Refills, Maintenance, 10/21/24 5:21:00 PM EDT, Solution, [facility]/pharmacy #[id number], Partial fill upon patient request if [...] 1 Refills, Maintenance, 10/15/24 11:39:00 AM EDT, [facility]/pharmacy #0859, 163, cm, 10/12/24 10:20:00 EDT, Height, 97.8, kg, 10/12/24 1:39:00 EDT, Dry Weight Start Date: 10/15/24 Status: Ordered Quantity: 90.0 Unit: tablet Repeat number: 2 meclizine 12.5 mg oral tablet 1 tablet = 12.5 mg, By Mouth, 3 times a day, PRN for dizziness, # 30 tablet, 0 Refills, Maintenance, 10/12/24 12:25:00 PM EDT, Tablet, [facility], Partial fill upon patient request if [...] 1 Refills, Maintenance, 02/10/25 6:27:00 AM EDT, [facility], 163, cm, 01/20/25 14:07:00 EDT, Height, 95.5, kg, 01/05/25 14:20:00 EDT, Dry Weight Start Date: 02/10/25 Status: Ordered Quantity: 90.0 Unit: capsule Repeat number: 2 ondansetron 4 mg oral tablet 1 tablet, By Mouth, Every 8 hours, PRN NEEDED FOR NAUSEA AND VOMITING, # 10 tablet, 1 Refills, Maintenance, 09/30/24 3:01:00 PM EDT, [facility]/pharmacy #[id number], 163, cm, 09/30/24 15:00:00 EDT, Height, 100,kg, 02/25/24 11:50:00 EDT, Dry Weight Start Date: 09/30/24 Status: Ordered Quantity: 10.0 Unit: tablet Repeat number: 2 Pen [place], 31 G x 5 mm BD Ultra [...] Refills, Maintenance, 01/20/25 3:42:00 PM EDT, Solution, [id number], Partial fill upon patient request if [...] Care Nurse Name: Joellen Nava RN Position: [facility] SN RN Member Role: Primary Care Nurse Name: Cleo Brewer NP Position: [facility] PCO Associate Professional Member Role: PCP Address: [address] [place] [address] Emergency Medicine [address] Telecom: Name: Sen Rosales RN Position: [facility] RN Member Role: Primary Care Nurse Care Team Related Persons Name: MARIAA MONSIVAIS Name: SEN ALEJANDRA Name: SHRAVAN ALEJANDRA Name: THOMAS ALEJANDRA Insurance Providers Guarantor name: SAY ALEJANDRA Health Plan Information #: 1 Payer: [employer] Payer Identifier: NA Member Number: [id number] Group Number: [id number] Subscriber Identifier: [id number] Relationship to Subscriber: self Coverage Type: Managed Care (Private) Coverage Verification Date: NA Telecom: NA Address: Health Plan Information #: 2 Payer: [employer] Payer Identifier: NA Member Number: [id number] Group Number: Subscriber Identifier: [id number] Relationship to Subscriber: self Coverage Type: MEDICAID Coverage Verification Date: NA Telecom: NA Address:
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
--- OUTSIDE RECORDS SUMMARY | 2025-03-02 15:20 | XMS_ITS | Clinical Summary ---
Author Organization [address] [facility] Address [address] [place] [address] Phone Care Team Providers Care [employer] Name Role Phone Irish mustafa EDWARD Primary Care Provider [phone] Allergies Active Allergy Reactions Criticality Noted Date Comments Gabapentin 10/01/2024 Morphine 08/31/2021 Oxycodone 06/10/2013 Penicillins 04/24/2006 Oxycodone-Acetaminophen 10/01/2024 Medications aspirin 81 mg EC tablet Take 1 tablet (81 mg total) by mouth 1 (one) time each day. 07/18/19 25 Active betamethasone dipropionate 0.05 % lotion APPLY TOPICALLY TWICE A DAY FOR 2 WEEKS THEN ONLY NEEDED 07/13/19 25 Active buPROPion XL (WELLBUTRIN XL) 150 mg 24 hr tablet Take 1 tablet (150 mg total) by mouth 2 (two) times a day. Active cetirizine (ZyrTEC) 10 mg tablet Take 1 tablet (10 mg total) by mouth 1 (one) time each day. Active clonazePAM (KlonoPIN) 0.5 mg tablet Take 1 tablet (0.5 mg total) by mouth 2 (two) times a day. for 30 days Max Daily Amount: 1 mg Active cyclobenzaprine (FLEXERIL) 5 mg tablet TAKE 1 TABLET BY MOUTH 3 TIMES A DAY NEEDED FOR SPASMS FOR 7 DAYS 05/29/20 24 Active glimepiride (AMARYL) 2 mg tablet Take 1 tablet (2 mg total) by mouth 1 (one) time each day. 07/13/19 25 Active levothyroxine (SYNTHROID, LEVOTHROID) 75 mcg tablet Take 1 tablet (75 mcg total) by mouth 1 (one) time each day. Active Mounjaro 2.5 mg/0.5 mL injection INJECT 1 PEN SUBCUTANEOUSLY EVERY WEEK. ROTATE INJECTION SITES. 07/16/19 25 Active naproxen (NAPROSYN) 500 mg tablet take 1 tablet by mouth every 12 hours with food or milk as needed 07/16/19 25 Active nitrofurantoin, macrocrystal-mon ohydrate, (MACROBID) 100 mg capsule Take 1 capsule (100 mg total) by mouth 2 (two) times a day. for 5 days 05/29/20 24 Active omeprazole (PriLOSEC) [address] capsule 08/19/19 22 Active ondansetron (ZOFRAN) 4 mg tablet 10/01/19 25 Active rosuvastatin (CRESTOR) 40 mg tablet Take 1 tablet (40 mg total) by mouth. at bedtime 08/17/19 25 Active acetaminophen (TYLENOL) 325 mg tablet Take 2 tablets (650 mg total) by mouth. Active Social History Tobacco Use Types Packs/Day Years Used Date Smoking Tobacco: Never Assessed Comments Unknown Sex and Gender Information Value Date Recorded Sex Assigned at Not on file Legal Sex Female 4:58 PM EST Gender Identity Not on file Sexual Orientation Not on file Plan of Treatment Health Maintenance Due Date Last Done Comments Breast Cancer Screening 1955 DTaP,Tdap,and Td Vaccines (1 - Tdap) 02/01/1972 Pneumococcal Vaccine: 50+ Ye ars (1 of 1 - PCV) 2003 Zoster Vaccines (1 of 2) 2003 Colorectal Cancer Screening: Colonoscopy 06/06/2022 Falls Risk Assessment 06/06/2022 Hepatitis C Screening 06/06/2022 Medicare Annual Wellness Visit 06/06/2022 Osteoporosis Screening (Bone Density Screening) 06/06/2022 Social Influencers of Health Screening 06/06/2022 COVID-19 Vaccine ( - 2023-2 5 season) 2024 Depression Screening 07/08/2024 Influenza Vaccine (#1) 2025 RSV Immunization Adult Patie nts (1 - 1-dose 75+ series) 02/01/2028 HIB Vaccines Aged Out No longer eligi ble based on patient's age to complete this topic HPV Vaccines Aged Out No longer eligi ble based on patient's age to complete this topic Hepatitis A Vaccines Aged Out No long er eligible based on patient's age to complete this topic Hepatitis B Vaccines Aged Out No long er eligible based on patient's age to complete this topic IPV Vaccines Aged Out No longer eligi ble based on patient's age to complete this topic MMR Vaccines Aged Out No longer eligi ble based on patient's age to complete this topic Meningococcal ACWY Vaccine Aged Out N o longer eligible based on patient's age to complete this topic Meningococcal B Vaccine Aged Out No l onger eligible based on patient's age to complete this topic RSV Immunization Patients Un angelica 20 months Aged Out No longer eligible b ased on patient's age to complete this topic Varicella Vaccines Aged Out No longer eligible based on patient's age to complete this topic Insurance [facility]IC[facility] ADVANTAGE on file MEDICAID - [place] Care Teams [employer] Relationship Specialty Start Date End Date Irish Alfonso NP [address] [place] [address] PCP - General Internal Medicine 08/31/21
== END 2025-03-02 14:50 | disposition home or self-care (01) ==
LOC: HO.HSM 14:23
PROVIDERS: PCP Internal Medicine; Referring Provider Internal Medicine; Visit Provider Psychiatry & Neurology Neurology
DX: F41.8 Other specified anxiety disorders (principal); M79.7 Fibromyalgia
CPT/HCPCS: 99214

== ENCOUNTER → 2025-03-02 14:22 | Outpatient (BNVA) | payer MEDICARE, MEDICAID, SELFPAY | PROVIDERS: PCP Internal Medicine; Referring Provider Internal Medicine; Visit Provider Psychiatry & Neurology Neurology | DX: M79.7 Fibromyalgia (principal); F41.8 Other specified anxiety disorders | CPT/HCPCS: 99212 ==